=== PATIENT | female | born 1965 | race American Indian/Alaskan Native ===

== ENCOUNTER 2019-06-23 09:22 | Emergency (ER) | payer MEDICAID ==
[2019-06-23] MEDS ORDERED: IBUPROFEN 600 MG TAB PO ONE (11:32)
[2019-06-23] MEDS ORDERED: traMADol 50 MG TAB PO ONE (11:32)
--- NOTE | 2019-06-23 11:39 | Emergency Department Report ---
ED Lower Extremity HPI - General Chief Complaint: Fall Stated Complaint: FALL Time Seen by Provider: 06/23/19 11:31 Source: patient Mode of arrival: Ambulatory Limitations: No Limitations - History of Present Illness Initial Comments: 53-year-old -[place] female without significant past medical history presents with complaints of left hip and left lower leg pain after a slip and fall in the parking lot at [facility] this morning. She rates her pain as 8/10 in severity. She denies any difficulty with ambulation, however states pain does worsen with ambulation and movement of the hip and lower leg. She denies any numbness/tingling/weakness in her leg and denies any back pain or head trauma. MD Complaint: hip injury, leg injury -: Sudden Associated Symptoms: denies: swelling, numbness, tingling - Related Data Previous Rx's Medication Instructions Recorded Last Taken Type Naproxen 500 mg PO BID PRN #14 tablet 06/23/19 Unknown Rx Allergies Allergy/AdvReac Type Severity Reaction Status Date / Time No Known Allergies Allergy Unverified 06/23/19 09:42 ED Review of Systems ROS: Stated complaint: FALL Other details as noted in HPI Constitutional: denies: weakness Respiratory: denies: shortness of breath Musculoskeletal: arthralgia. denies: back pain, joint swelling Skin: denies: rash, lesions, change in color Hematological/Lymphatic: denies: easy bleeding ED Past Medical Hx - Past Medical History Previous Medical History?: No - Surgical History Past Surgical History?: Yes Additional Surgical History: - Social History Smoking Status: Former Smoker Substance Use Type: None - Medications Home Medications: Home Medications Medication Instructions Recorded Confirmed Last Taken Type Naproxen 500 mg PO BID PRN #14 tablet 06/23/19 Unknown Rx ED Physical Exam - General Limitations: No Limitations General appearance: alert, in no apparent distress - Head Head exam: Present: atraumatic, normocephalic - Eye Eye exam: Present: normal appearance - Respiratory Respiratory exam: Absent: respiratory distress - Cardiovascular Cardiovascular Exam: Present: regular rate - GI/Abdominal GI/Abdominal exam: Present: soft. Absent: tenderness - Rectal Rectal exam: Present: deferred - Extremities Exam Extremities exam: Present: full ROM, tenderness (ttp over left lateral hip and left lower tibia without bruising or deformity noted) - Back Exam Back exam: Present: full ROM. Absent: paraspinal tenderness - Neurological Exam Neurological exam: Present: alert, oriented X3, normal gait. Absent: motor sensory deficit - Psychiatric Psychiatric exam: Present: normal affect, normal mood - Skin Skin exam: Present: warm, dry, intact, normal color. Absent: rash, ecchymosis ED Course Vital Signs 06/23/19 06/23/19 09:40 14:13 Temperature 98.0 F Pulse Rate 71 74 Respiratory 16 16 Rate Blood Pressure 117/63 Blood Pressure 118/70 [Left] O2 Sat by Pulse 95 98 Oximetry ED Lower Extremity MDM - Radiology Data Radiology results: report reviewed LEFT HIP 2 VIEWS INDICATION / CLINICAL INFORMATION: pain after fall COMPARISON: None available. FINDINGS: BONES / JOINT(S): No acute fracture or subluxation. No significant arthritis. SOFT TISSUES: No significant abnormality. ADDITIONAL FINDINGS: None. LEFT HIP AND FEMUR 4 VIEWS INDICATION / CLINICAL INFORMATION: pain after fall. COMPARISON: None available. FINDINGS: Moderate degenerative change in the hip joint. No fracture, subluxation or other acute abnormality. - Medical Decision Making Patient presents with left hip and leg pain after fall today at [facility]. X-rays are without acute findings. No visible deformities noted on exam. Patient is ambulating without difficulty. She is stable for discharge home. Recommend follow-up with her primary care as needed. Conservative treatment with icing and rest with NSAIDs recommended. Discussed return precautions in detail with ayde juan who verbalizes understanding. Critical care attestation.: If time is entered above; I have spent that time in minutes in the direct care of this critically ill patient, excluding procedure time. ED Disposition Clinical Impression: Injury of left tibia Fall Qualifiers: Encounter type: initial encounter Qualified Code(s): W19.XXXA - Unspecified fall, initial encounter Contusion of hip, left Qualifiers: Encounter type: initial encounter Qualified Code(s): S70.02XA - Contusion of left hip, initial encounter Disposition: - TO HOME OR SELFCARE Is pt being admited?: No Condition: Stable Instructions: Contusion in Adults (ED), Fall Prevention (ED) Prescriptions: Naproxen 500 mg PO BID PRN #14 tablet PRN Reason: pain Referrals: HARDIK PACHECO MD [Primary Care Provider] - 3-5 Days
--- NOTE | 2019-06-23 12:55 | XRay Report ---
LEFT HIP AND FEMUR 4 VIEWS INDICATION / CLINICAL INFORMATION: pain after fall. COMPARISON: None available. FINDINGS: Moderate degenerative change in the hip joint. No fracture, subluxation or other acute abnormality. Signer Name: Fer Loera MD Signed: 06/23/2019 12:50 PM Workstation Name: [id number]
--- NOTE | 2019-06-23 12:55 | XRay Report ---
LEFT HIP 2 VIEWS INDICATION / CLINICAL INFORMATION: pain after fall COMPARISON: None available. FINDINGS: BONES / JOINT(S): No acute fracture or subluxation. No significant arthritis. SOFT TISSUES: No significant abnormality. ADDITIONAL FINDINGS: None. Signer Name: Abhi Dubon MD Signed: 06/23/2019 12:51 PM Workstation Name: [id number]
[2019-06-23 14:14] VITALS: BP 118/70
== END 2019-06-23 14:13 | disposition home or self-care (01) ==
LOC: ED 09:22
DX: S70.02XA Contusion of left hip, initial encounter (principal); S84.02XA Injury of tibial nerve at lower leg level, left leg, initial encounter; Z87.891 Personal history of nicotine dependence; Z79.899 Other long term (current) drug therapy; W01.0XXA Fall on same level from slipping, tripping and stumbling without subsequent striking against object, initial encounter; Y93.89 Activity, other specified; Y92.89 Other specified places as the place of occurrence of the external cause; Y99.8 Other external cause status

== ENCOUNTER 2020-02-29 07:39 | Emergency (ER) | payer MEDICAID ==
[2020-02-29 07:48] VITALS: BP 140/53
[2020-02-29 08:13] LABS: Basophils # (Auto) 0.1 K/mm3 (0.0-0.1); Basophils % (Auto) 0.7 % (0.0-1.8); Eosinophils # (Auto) 0.3 K/mm3 (0.0-0.4); Eosinophils % (Auto) 3.9 % (0.0-4.3); Hematocrit 36.8 % (30.3-42.9); Hemoglobin 12.5 gm/dl (10.1-14.3); Lymphocytes # (Auto) 2.1 K/mm3 (1.2-5.4); Lymphocytes % (Auto) 25.8 % (13.4-35.0); Mean Corpuscular HGB Conc 34 % (30-34); Mean Corpuscular Volume 85 fl (79-97); Monocytes # (Auto) 0.5 K/mm3 (0.0-0.8); Monocytes % (Auto) 6.7 % (0.0-7.3); Platelet Count 285 K/mm3 (140-440); Red Blood Count 4.35 M/mm3 (3.65-5.03); Red Cell Distribution Width 15.2 % (13.2-15.2)
[2020-02-29 08:31] LABS: Alanine Aminotransferase 12 units/L (7-56); Albumin 3.8 g/dL (3.9-5); Blood Urea Nitrogen 9 mg/dL (7-17); Calcium 8.8 mg/dL (8.4-10.2); Hemolysis Index 4
[2020-02-29 08:32] LABS: BUN/Creatinine Ratio 15
[2020-02-29 09:18] LABS: Bilirubin,Urine NEG (Negative); Blood,Urine NEG (Negative); Color,Urine Yellow (Yellow); Mucus,Urine FEW /HPF; Protein,Urine <15 mg/dL mg/dL (Negative)
[2020-02-29] MEDS ORDERED: ONDANSETRON 4 MG ODT TAB PO ONE (09:33)
--- NOTE | 2020-02-29 09:41 | Emergency Department Report ---
ED General Adult HPI - General Chief complaint: Nausea/Vomiting/Diarrhea Stated complaint: HEADACHE,NAUSEA Time Seen by Provider: 02/29/20 08:04 Source: patient Mode of arrival: Ambulatory Limitations: No Limitations - History of Present Illness Initial comments: 54-year-old -[place] Citizen female patient without past medical history presents with complaints of intermittent nausea and lightheadedness x1 week. She states 2 episodes of vomiting yesterday and denies any hematemesis/coffee- ground emesis, diarrhea/constipation/hematochezia/melena, abdominal pain, fever/chills/sweats, chest pain, shortness of breath, cough, or recent known sick contacts. She also reports intermittent mild headaches that resolved with OTC medication. No current headache per patient. She also denies vision changes, numbness/tingling/weakness in her limbs, difficulty with speech/ambulation, memory loss, or confusion. Severity scale (0 -10): 8 - Related Data Previous Rx's Medication Instructions Recorded Last Taken Type Naproxen 500 mg PO BID PRN #14 tablet 06/23/19 Unknown Rx Famotidine [Pepcid] 40 mg PO DAILY #14 tablet 11/05/19 Unknown Rx hydrOXYzine HCL [Atarax] 25 mg PO Q6HR PRN #20 tablet 11/05/19 Unknown Rx predniSONE [Deltasone] 50 mg PO QDAY #5 tab 11/05/19 Unknown Rx Ondansetron [Zofran Odt] 4 mg PO Q8HR PRN #15 tab.rapdis 02/29/20 Unknown Rx Allergies Allergy/AdvReac Type Severity Reaction Status Date / Time metronidazole Allergy Itching Verified 11/05/19 20:55 ED Review of Systems ROS: Stated complaint: HEADACHE,NAUSEA Other details as noted in HPI Constitutional: denies: chills, fever, malaise Eyes: denies: eye pain, vision change ENT: denies: throat pain Respiratory: denies: cough, shortness of breath Cardiovascular: denies: chest pain, palpitations Gastrointestinal: nausea, vomiting. denies: diarrhea, constipation, hem atemesis, hematochezia Genitourinary: denies: urgency, dysuria, frequency, hematuria Musculoskeletal: denies: back pain Skin: denies: change in color Neurological: as per HPI. denies: weakness, numbness, paresthesias, abnormal gait ED Past Medical Hx - Past Medical History Previous Medical History?: No - Surgical History Past Surgical History?: Yes Additional Surgical History: - Social History Smoking Status: Former Smoker Substance Use Type: None - Medications Home Medications: Home Medications Medication Instructions Recorded Confirmed Last Taken Type Naproxen 500 mg PO BID PRN #14 tablet 06/23/19 Unknown Rx Famotidine [Pepcid] 40 mg PO DAILY #14 tablet 11/05/19 Unknown Rx hydrOXYzine HCL [Atarax] 25 mg PO Q6HR PRN #20 tablet 11/05/19 Unknown Rx predniSONE [Deltasone] 50 mg PO QDAY #5 tab 11/05/19 Unknown Rx Ondansetron [Zofran Odt] 4 mg PO Q8HR PRN #15 tab.rapdis 02/29/20 Unknown Rx ED Physical Exam - General Limitations: No Limitations General appearance: alert, in no apparent distress - Head Head exam: Present: atraumatic, normocephalic - Eye Eye exam: Present: normal appearance, EOMI. Absent: PERRL, scleral icterus - ENT ENT exam: Present: normal exam - Neck Neck exam: Present: normal inspection. Absent: full ROM - Respiratory Respiratory exam: Present: normal lung sounds bilaterally. Absent: respiratory distress - Cardiovascular Cardiovascular Exam: Present: regular rate, normal rhythm. Absent: systolic murmur, diastolic murmur, rubs, gallop - GI/Abdominal GI/Abdominal exam: Present: soft, normal bowel sounds. Absent: distended, tenderness, guarding, rebound, rigid - Extremities Exam Extremities exam: Present: full ROM - Back Exam Back exam: Present: full ROM - Neurological Exam Neurological exam: Present: alert, oriented X3, CN II-XII intact, normal gait. Absent: motor sensory deficit - Expanded Neurological Exam Expanded Cerebellar function: Finger to Nose: Normal, Heel to Lindsay: Normal, Romberg: Normal Sensory exam: Upper Extremity Light Touch: Normal, Lower Extremity Light Touch: Normal Motor strength exam: RUE: 5, LUE: 5, RLE: 5, LLE: 5 - Psychiatric Psychiatric exam: Present: normal affect, normal mood - Skin Skin exam: Present: warm, dry, intact, normal color. Absent: rash, cyanosis ED Course Vital Signs 02/29/20 07:43 Temperature 97.7 F Pulse Rate 71 Blood Pressure 140/53 [Right] O2 Sat by Pulse 96 Oximetry ED Medical Decision Making - Lab Data Result diagrams: 02/29/20 07:54 02/29/20 07:54 Lab Results 02/29/20 02/29/20 02/29/20 Range/Units 07:54 07:54 07:54 WBC 8.0 (4.5-11.0) K/mm3 RBC 4.35 (3.65-5.03) M/mm3 Hgb 12.5 (10.1-14.3) gm/dl Hct 36.8 (30.3-42.9) % MCV 85 (79-97) fl MCH 29 (28-32) pg MCHC 34 (30-34) % RDW 15.2 (13.2-15.2) % Plt Count 285 (140-440) K/mm3 Lymph % (Auto) 25.8 (13.4-35.0) % Dixie % (Auto) 6.7 (0.0-7.3) % Eos % (Auto) 3.9 (0.0-4.3) % Baso % (Auto) 0.7 (0.0-1.8) % Lymph # (Auto) 2.1 (1.2-5.4) K/mm3 Dixie # (Auto) 0.5 (0.0-0.8) K/mm3 Eos # (Auto) 0.3 (0.0-0.4) K/mm3 Baso # (Auto) 0.1 (0.0-0.1) K/mm3 Seg Neutrophils % 62.9 (40.0-70.0) % Seg Neutrophils # 5.1 (1.8-7.7) K/mm3 Sodium 139 (137-145) mmol/L Potassium 3.7 (3.6-5.0) mmol/L Chloride 103.0 (98-107) mmol/L Carbon Dioxide 25 (22-30) mmol/L Anion Gap 15 mmol/L BUN 9 (7-17) mg/dL Creatinine 0.6 (0.6-1.2) mg/dL Estimated GFR > 60 ml/min BUN/Creatinine Ratio 15 % Glucose 114 H (65-100) mg/dL Calcium 8.8 (8.4-10.2) mg/dL Total Bilirubin 0.30 (0.1-1.2) mg/dL AST 14 (5-40) units/L ALT 12 (7-56) units/L Alkaline Phosphatase 80 (35-129) units/L Troponin T < 0.010 (0.00-0.029) ng/mL Total Protein 6.9 (6.3-8.2) g/dL Albumin 3.8 L (3.9-5) g/dL Albumin/Globulin Ratio 1.2 % Urine Color (Yellow) Urine Turbidity (Clear) Urine pH (5.0-7.0) Ur Specific Perry (1.003-1.030) Urine Protein (Negative) mg/dL Urine Glucose (UA) (Negative) mg/dL Urine Ketones (Negative) mg/dL Urine Blood (Negative) Urine Nitrite (Negative) Urine Bilirubin (Negative) Urine Urobilinogen (<2.0) mg/dL Ur Leukocyte Esterase (Negative) Urine WBC (Auto) (0.0-6.0) /HPF Urine RBC (Auto) (0.0-6.0) /HPF U Epithel Cells (Auto) (0-13.0) /HPF Urine Mucus /HPF 02/29/20 Range/Units 09:01 WBC (4.5-11.0) K/mm3 RBC (3.65-5.03) M/mm3 Hgb (10.1-14.3) gm/dl Hct (30.3-42.9) % MCV (79-97) fl MCH (28-32) pg MCHC (30-34) % RDW (13.2-15.2) % Plt Count (140-440) K/mm3 Lymph % (Auto) (13.4-35.0) % Dixie % (Auto) (0.0-7.3) % Eos % (Auto) (0.0-4.3) % Baso % (Auto) (0.0-1.8) % Lymph # (Auto) (1.2-5.4) K/mm3 Dixie # (Auto) (0.0-0.8) K/mm3 Eos # (Auto) (0.0-0.4) K/mm3 Baso # (Auto) (0.0-0.1) K/mm3 Seg Neutrophils % (40.0-70.0) % Seg Neutrophils # (1.8-7.7) K/mm3 Sodium (137-145) mmol/L Potassium (3.6-5.0) mmol/L Chloride (98-107) mmol/L Carbon Dioxide (22-30) mmol/L Anion Gap mmol/L BUN (7-17) mg/dL Creatinine (0.6-1.2) mg/dL Estimated GFR ml/min BUN/Creatinine Ratio % Glucose (65-100) mg/dL Calcium (8.4-10.2) mg/dL Total Bilirubin (0.1-1.2) mg/dL AST (5-40) units/L ALT (7-56) units/L Alkaline Phosphatase (35-129) units/L Troponin T (0.00-0.029) ng/mL Total Protein (6.3-8.2) g/dL Albumin (3.9-5) g/dL Albumin/Globulin Ratio % Urine Color Yellow (Yellow) Urine Turbidity Clear (Clear) Urine pH 6.0 (5.0-7.0) Ur Specific Perry 1.019 (1.003-1.030) Urine Protein <15 mg/dl (Negative) mg/dL Urine Glucose (UA) Neg (Negative) mg/dL Urine Ketones Neg (Negative) mg/dL Urine Blood Neg (Negative) Urine Nitrite Neg (Negative) Urine Bilirubin Neg (Negative) Urine Urobilinogen 2.0 (<2.0) mg/dL Ur Leukocyte Esterase Sm (Negative) Urine WBC (Auto) 1.0 (0.0-6.0) /HPF Urine RBC (Auto) 4.0 (0.0-6.0) /HPF U Epithel Cells (Auto) 2.0 (0-13.0) /HPF Urine Mucus Few /HPF - EKG Data EKG shows normal: sinus rhythm Rate: normal - EKG Data Interpretation: normal EKG - Medical Decision Making 54-year-old -[place] Citizen female patient without past medical history presents with complaints of intermittent nausea and lightheadedness x1 week. She states 2 episodes of vomiting yesterday and denies any hematemesis/coffee- ground emesis, diarrhea/constipation/hematochezia/melena, abdominal pain, fever /chills/sweats, chest pain, shortness of breath, cough, or recent known sick contacts. She also reports intermittent mild headaches that resolved with OTC medication. No current headache per patient. She also denies vision changes, numbness/tingling/weakness in her limbs, difficulty with speech/ambulation, memory loss, or confusion. Neuro exam is normal. No abnormalities are noted on physical exam. CBC, CMP, troponin, and UA are WNL. EKG is normal. Patient given oral Zofran and is tolerating fluids and foods p.o. currently. Her vitals remain normal. Orthostatic vitals are normal. Patient is stable for discharge home. Prescription for Zofran given and recommend follow-up with primary care provider within 2 days. Strict return precautions were discussed in detail with patient who verbalizes understanding. Critical care attestation.: If time is entered above; I have spent that time in minutes in the direct care of this critically ill patient, excluding procedure time. ED Disposition Clinical Impression: Lightheadedness Nausea and vomiting Qualifiers: Vomiting type: unspecified Vomiting Intractability: non-intractable Qualified Code(s): R11.2 - Nausea with vomiting, unspecified Disposition: DC-01 TO HOME OR SELFCARE Is pt being admited?: No Condition: Stable Instructions: Nausea and Vomiting, Adult, Dizziness, [id number] Prescriptions: Ondansetron [Zofran Odt] 4 mg PO Q8HR PRN #15 tab.rapdis PRN Reason: Nausea Referrals: PRIMARY CARE, [Primary Care Provider] - 2-[address] [facility] [Provider Group] - 2-3 Days
== END 2020-02-29 11:22 | disposition home or self-care (01) ==
LOC: ED 07:39
DX: R42 Dizziness and giddiness (principal); R11.2 Nausea with vomiting, unspecified; Z87.891 Personal history of nicotine dependence; Z98.890 Other specified postprocedural states; Z88.1 Allergy status to other antibiotic agents
CPT/HCPCS: 36415; 80053; 81001; 84484; 85025; 93005; Q0162

== ENCOUNTER 2020-03-25 13:35 | Emergency (ER) | payer MEDICAID ==
[2020-03-25 14:23] VITALS: BP 125/71
--- NOTE | 2020-03-25 16:00 | Emergency Department Report ---
ED ENT HPI - General Chief complaint: Earache Stated complaint: LEFT EAR ACHE Time Seen by Provider: 03/25/20 15:40 Source: patient Mode of arrival: Ambulatory Limitations: No Limitations - History of Present Illness Initial comments: 54-year-old female complaining of left earache started yesterday. She used sweet oil and ibuprofen with no relief. She denies upper respiratory symptoms such as cough no runny nose no chest pain no shortness of breath no nausea no vomiting MD complaint: ear pain -: days(s) (2) Location: L ear Quality: aching Consistency: constant Improves with: none Worsens with: none Associated Symptoms: denies: fever, cough, gum swelling, toothache, pain with swallowing, sore throat, tinnitus, hearing loss, discharge from ear, other - Related Data Previous Rx's Medication Instructions Recorded Last Taken Type Naproxen 500 mg PO BID PRN #14 tablet 06/23/19 Unknown Rx Famotidine [Pepcid] 40 mg PO DAILY #14 tablet 11/05/19 Unknown Rx hydrOXYzine HCL [Atarax] 25 mg PO Q6HR PRN #20 tablet 11/05/19 Unknown Rx predniSONE [Deltasone] 50 mg PO QDAY #5 tab 11/05/19 Unknown Rx Ondansetron [Zofran Odt] 4 mg PO Q8HR PRN #15 tab.rapdis 02/29/20 Unknown Rx Amoxicillin [Trimox CAP] 500 mg PO Q8H #21 capsule 03/25/20 Unknown Rx Ibuprofen [Motrin 600 MG tab] 600 mg PO Q8H PRN #21 tablet 03/25/20 Unknown Rx Allergies Allergy/AdvReac Type Severity Reaction Status Date / Time metronidazole Allergy Itching Verified 11/05/19 20:55 ED Dental HPI - General Chief complaint: Earache Stated complaint: LEFT EAR ACHE Time Seen by Provider: 03/25/20 15:40 Source: patient Mode of arrival: Ambulatory Limitations: No Limitations - History of Present Illness Initial comments: 54-year-old female complaining of ear ache x2 days. She denies any trauma she denies coughing runny nose no URI symptoms. She is taking and she is use sweet oil and used ibuprofen with no relief - Related Data Previous Rx's Medication Instructions Recorded Last Taken Type Naproxen 500 mg PO BID PRN #14 tablet 06/23/19 Unknown Rx Famotidine [Pepcid] 40 mg PO DAILY #14 tablet 11/05/19 Unknown Rx hydrOXYzine HCL [Atarax] 25 mg PO Q6HR PRN #20 tablet 11/05/19 Unknown Rx predniSONE [Deltasone] 50 mg PO QDAY #5 tab 11/05/19 Unknown Rx Ondansetron [Zofran Odt] 4 mg PO Q8HR PRN #15 tab.rapdis 02/29/20 Unknown Rx Amoxicillin [Trimox CAP] 500 mg PO Q8H #21 capsule 03/25/20 Unknown Rx Ibuprofen [Motrin 600 MG tab] 600 mg PO Q8H PRN #21 tablet 03/25/20 Unknown Rx Allergies Allergy/AdvReac Type Severity Reaction Status Date / Time metronidazole Allergy Itching Verified 11/05/19 20:55 ED Review of Systems ROS: Stated complaint: LEFT EAR ACHE Other details as noted in HPI Comment: All other systems reviewed and negative Constitutional: denies: chills, fever Eyes: denies: eye pain, eye discharge, vision change ENT: ear pain, throat pain (Soreness to the throat). denies: dental pain, hearing loss, epistaxis Respiratory: no symptoms reported. denies: cough, shortness of breath, SOB with exertion, wheezing Cardiovascular: denies: chest pain, palpitations, dyspnea on exertion, edema, syncope, paroxysmal nocturnal dyspnea Gastrointestinal: denies: abdominal pain, nausea, diarrhea, constipation, hematemesis Genitourinary: denies: urgency, frequency, hematuria, discharge, abnormal menses , dyspareunia Skin: denies: rash, lesions Neurological: denies: headache, weakness, numbness, paresthesias, confusion, abnormal gait Psychiatric: denies: anxiety, depression, auditory hallucinations, visual hallucinations, homicidal thoughts ED Past Medical Hx - Past Medical History Previous Medical History?: No - Surgical History Past Surgical History?: Yes Additional Surgical History: - Social History Smoking Status: Never Smoker Substance Use Type: None - Medications Home Medications: Home Medications Medication Instructions Recorded Confirmed Last Taken Type Naproxen 500 mg PO BID PRN #14 tablet 06/23/19 Unknown Rx Famotidine [Pepcid] 40 mg PO DAILY #14 tablet 11/05/19 Unknown Rx hydrOXYzine HCL [Atarax] 25 mg PO Q6HR PRN #20 tablet 11/05/19 Unknown Rx predniSONE [Deltasone] 50 mg PO QDAY #5 tab 11/05/19 Unknown Rx Ondansetron [Zofran Odt] 4 mg PO Q8HR PRN #15 tab.rapdis 02/29/20 Unknown Rx Amoxicillin [Trimox CAP] 500 mg PO Q8H #21 capsule 03/25/20 Unknown Rx Ibuprofen [Motrin 600 MG tab] 600 mg PO Q8H PRN #21 tablet 03/25/20 Unknown Rx ED Physical Exam - General Limitations: No Limitations General appearance: alert, in no apparent distress - Head Head exam: Present: atraumatic, normal inspection - Eye Eye exam: Present: normal appearance. Absent: scleral icterus, conjunctival injection - ENT ENT exam: Present: normal orophraynx, mucous membranes moist, normal external ear exam, other (Left TM is dull and distant no erythema noted some earwax buildup) - Neck Neck exam: Present: normal inspection - Respiratory Respiratory exam: Present: normal lung sounds bilaterally, respiratory distress - Cardiovascular Cardiovascular Exam: Present: regular rate, normal heart sounds - Extremities Exam Extremities exam: Present: normal inspection - Back Exam Back exam: Present: normal inspection - Neurological Exam Neurological exam: Present: alert, oriented X3 - Psychiatric Psychiatric exam: Present: normal affect - Skin Skin exam: Present: warm, dry, intact ED Course Vital Signs 03/25/20 14:20 Temperature 98.1 F Pulse Rate 64 Respiratory 18 Rate Blood Pressure 125/71 [Right] O2 Sat by Pulse 95 Oximetry - Reevaluation(s) Reevaluation #1: 03/25/20 16:48 Patient in no acute distress ED Medical Decision Making - Medical Decision Making 54-year-old female with 2-day complaint of earache. Examination reveals left TM that is dull and distended there is no erythema she does have some mild wax buildup otherwise no other acute findings - Differential Diagnosis Left otitis media earache cerumen impaction Critical Care Time: No Critical care attestation.: If time is entered above; I have spent that time in minutes in the direct care of this critically ill patient, excluding procedure time. ED Disposition Clinical Impression: Earache, left Disposition: DC-01 TO HOME OR SELFCARE Is pt being admited?: No Does the pt Need Aspirin: No Condition: Stable Instructions: Earache, Adult Prescriptions: Ibuprofen [Motrin 600 MG tab] 600 mg PO Q8H PRN #21 tablet PRN Reason: Pain Amoxicillin [Trimox CAP] 500 mg PO Q8H #21 capsule Referrals: PRIMARY CAREMD [Primary Care Provider] - 3-5 Days TIFFANI JEAN-BAPTISTE MD [Staff Physician] - 3-5 Days Time of Disposition: 16:04
== END 2020-03-25 17:37 | disposition home or self-care (01) ==
LOC: ED 13:35
DX: H92.02 Otalgia, left ear (principal); Z98.890 Other specified postprocedural states; Z79.1 Long term (current) use of non-steroidal anti-inflammatories (NSAID); Z79.2 Long term (current) use of antibiotics; Z79.899 Other long term (current) drug therapy; Z88.8 Allergy status to other drugs, medicaments and biological substances
CPT/HCPCS: 99282

== ENCOUNTER 2021-04-18 10:27 | Emergency (ER) | payer MEDICAID ==
[2021-04-18 11:10] VITALS: BP 107/69
--- NOTE | 2021-04-18 11:50 | Emergency Department Report ---
- General Chief Complaint: Upper Respiratory Infection Stated Complaint: COVID LIKE SYMPTOMS Time Seen by Provider: 04/18/21 11:17 Source: patient Mode of arrival: Ambulatory Limitations: No Limitations - History of Present Illness Initial Comments: Is a pleasant 55-year-old female presents emerged from chief complaint of left knee pain, generalized body aches, nausea, fever, generalized malaise, cough and congestion has been present over the past 3 days. She does report she had a positive exposure to COVID-19 and influenza by her daughter. She states she does not have a known past medical history, current medication use or known allergies to medications. She does report taking [id number] vitamins. And will occasionally take [id number] medications for acid reflux. - Related Data Previous Rx's Medication Instructions Recorded Last Taken Type Naproxen 500 mg PO BID PRN #14 tablet 06/23/19 Unknown Rx Famotidine [Pepcid] 40 mg PO DAILY #14 tablet 11/05/19 Unknown Rx hydrOXYzine HCL [Atarax] 25 mg PO Q6HR PRN #20 tablet 11/05/19 Unknown Rx predniSONE [Deltasone] 50 mg PO QDAY #5 tab 11/05/19 Unknown Rx Ondansetron [Zofran Odt] 4 mg PO Q8HR PRN #15 tab.rapdis 02/29/20 Unknown Rx Amoxicillin [Trimox CAP] 500 mg PO Q8H #21 capsule 03/25/20 Unknown Rx Ibuprofen [Motrin 600 MG tab] 600 mg PO Q8H PRN #21 tablet 03/25/20 Unknown Rx Benzonatate [Tessalon Perles] 100 mg PO Q8HR #30 capsule 04/18/21 Unknown Rx Ibuprofen [Motrin 800 MG tab] 800 mg PO Q8HR PRN #30 tablet 04/18/21 Unknown Rx methylPREDNISolone [Medrol 4MG 4 mg PO ONCE #1 tab.ds.pk 04/18/21 Unknown Rx DOSEPAK (21 tabs)] Allergies Allergy/AdvReac Type Severity Reaction Status Date / Time metronidazole Allergy Itching Verified 11/05/19 20:55 ED Review of Systems ROS: Stated complaint: COVID LIKE SYMPTOMS Other details as noted in HPI Comment: All other systems reviewed and negative Constitutional: chills, fever, malaise Eyes: denies: eye pain, eye discharge, vision change ENT: congestion. denies: ear pain, throat pain Respiratory: cough. denies: shortness of breath, wheezing Cardiovascular: denies: chest pain, palpitations Endocrine: no symptoms reported Gastrointestinal: nausea. denies: abdominal pain, diarrhea Genitourinary: denies: urgency, dysuria, discharge Musculoskeletal: arthralgia. denies: back pain, joint swelling Skin: denies: rash, lesions Neurological: denies: headache, weakness, paresthesias Psychiatric: denies: anxiety, depression Hematological/Lymphatic: denies: easy bleeding, easy bruising ED Past Medical Hx - Surgical History Additional Surgical History: - Social History Smoking Status: Never Smoker Substance Use Type: None - Medications Home Medications: Home Medications Medication Instructions Recorded Confirmed Last Taken Type Naproxen 500 mg PO BID PRN #14 tablet 06/23/19 Unknown Rx Famotidine [Pepcid] 40 mg PO DAILY #14 tablet 11/05/19 Unknown Rx hydrOXYzine HCL [Atarax] 25 mg PO Q6HR PRN #20 tablet 11/05/19 Unknown Rx predniSONE [Deltasone] 50 mg PO QDAY #5 tab 11/05/19 Unknown Rx Ondansetron [Zofran Odt] 4 mg PO Q8HR PRN #15 tab.rapdis 02/29/20 Unknown Rx Amoxicillin [Trimox CAP] 500 mg PO Q8H #21 capsule 03/25/20 Unknown Rx Ibuprofen [Motrin 600 MG tab] 600 mg PO Q8H PRN #21 tablet 03/25/20 Unknown Rx Benzonatate [Tessalon Perles] 100 mg PO Q8HR #30 capsule 04/18/21 Unknown Rx Ibuprofen [Motrin 800 MG tab] 800 mg PO Q8HR PRN #30 tablet 04/18/21 Unknown Rx methylPREDNISolone [Medrol 4MG 4 mg PO ONCE #1 tab.ds.pk 04/18/21 Unknown Rx DOSEPAK (21 tabs)] ED Physical Exam - General Limitations: No Limitations General appearance: alert, in no apparent distress - Head Head exam: Present: atraumatic, normocephalic - Eye Eye exam: Present: normal appearance, PERRL, EOMI Pupils: Present: normal accommodation - ENT ENT exam: Present: normal exam, normal orophraynx, mucous membranes moist, TM's normal bilaterally - Neck Neck exam: Present: normal inspection, full ROM. Absent: tenderness, meningismus - Respiratory Respiratory exam: Present: normal lung sounds bilaterally. Absent: respiratory distress, wheezes, rales, rhonchi, stridor - Cardiovascular Cardiovascular Exam: Present: regular rate, normal rhythm, normal heart sounds. Absent: systolic murmur, diastolic murmur, rubs, gallop - GI/Abdominal GI/Abdominal exam: Present: soft, normal bowel sounds. Absent: distended, tenderness, guarding, rebound, rigid - Extremities Exam Extremities exam: Present: normal inspection, full ROM, normal capillary refill. Absent: tenderness, calf tenderness (Negative Homans' sign bilaterally, no posterior calf tenderness or palpable cords.), other - Back Exam Back exam: Present: normal inspection - Neurological Exam Neurological exam: Present: alert, oriented X3, normal gait - Psychiatric Psychiatric exam: Present: normal affect, normal mood - Skin Skin exam: Present: warm, dry, intact, normal color. Absent: rash ED Course Vital Signs 04/18/21 11:03 Temperature 99.3 F Pulse Rate 106 H Respiratory 18 Rate Blood Pressure 107/69 [Left] O2 Sat by Pulse 100 Oximetry ED Medical Decision Making - Medical Decision Making Patient nontoxic no acute distress. Vital signs stable. Positive Covid exposure recently and now having very classic symptoms for Covid. Lungs are clear. Vitals are stable. Recommended supportive treatment and outpatient follow-up primary care doctor. Return to the ER with any change or worsening symptoms. Patient verbalized understand the diagnosis, treatment plan and follow-up structures all questions were answered. - Differential Diagnosis COVID-19, influenza, pneumonia Critical care attestation.: If time is entered above; I have spent that time in minutes in the direct care of this critically ill patient, excluding procedure time. ED Disposition Clinical Impression: Acute viral syndrome, Suspected COVID-19 virus infection Disposition: HOME / SELF CARE / HOMELESS Is pt being admited?: No Condition: Stable Instructions: Viral Respiratory Infection, [id number] Prescriptions: methylPREDNISolone [Medrol 4MG DOSEPAK (21 tabs)] 4 mg PO ONCE #1 tab.ds.pk Ibuprofen [Motrin 800 MG tab] 800 mg PO Q8HR PRN #30 tablet PRN Reason: pain/fever Benzonatate [Tessalon Perles] 100 mg PO Q8HR #30 capsule Referrals: PRIMARY CARE, [Primary Care Provider] - 3-5 Days Forms: Work/School Release Form(ED) Time of Disposition: 11:49
== END 2021-04-18 12:01 | disposition home or self-care (01) ==
LOC: ED 10:27
DX: B34.9 Viral infection, unspecified (principal); Z20.822 Contact with and (suspected) exposure to COVID-19
CPT/HCPCS: 99282

== ENCOUNTER 2021-10-16 17:25 | Emergency (ER) | payer MEDICAID ==
[2021-10-16 17:34] VITALS: BP 141/84
== END 2021-10-17 01:30 | disposition left against medical advice (07) ==
LOC: ED 17:25
DX: L29.9 Pruritus, unspecified (principal); Z53.21 Procedure and treatment not carried out due to patient leaving prior to being seen by health care provider